=== PATIENT | female | born 1980 | race Caucasian/White ===

== ENCOUNTER 2025-05-01 16:13 | Outpatient (CLI) | payer BC, SELFPAY ==
--- NOTE | 2025-05-01 16:45 | CRLHL7_ITS ---
For Patients: As a result of the Century Cures Act, medical imaging exams and procedure reports are released immediately into your electronic medical record. You may view this report before your referring provider. If you have questions, please contact your health care provider. INDICATION: Trauma to the left lower extremity. Pain and swelling. Persistent symptoms 2 months after injury. Evaluate for deep venous thrombosis. COMPARISON: None. TECHNIQUE: A compression venous ultrasound exam was performed of the left lower extremity using james-scale imaging, color Doppler and spectral Doppler analysis. FINDINGS: Sonographic imaging of the left lower extremity demonstrates normal compressibility and color Doppler venous blood flow within the common femoral vein, deep femoral vein, and the proximal greater saphenous vein. Within the thigh, the femoral vein is patent and compressible. At a lower level, the popliteal and posterior tibial veins also show normal compressibility and color Doppler venous blood flow. Limited imaging of the contralateral groin demonstrates a normal spectral waveform and color Doppler venous blood flow within the right common femoral vein. IMPRESSION: Normal venous ultrasound exam. No evidence of deep vein thrombosis within the left lower extremity. Dictated by Rashaad Fierro MD @ 05/03/2025 4:18:44 PM (Electronically Signed)
== END 2025-05-01 16:14 | disposition home or self-care (01) ==
LOC: US 16:17
PROVIDERS: PCP Family Medicine; Visit Provider Family Medicine
DX: R60.0 Localized edema (principal); M79.605 Pain in left leg; S80.12XD Contusion of left lower leg, subsequent encounter
CPT/HCPCS: 93971